=== PATIENT | male | born 1990 | race Caucasian/White ===

== ENCOUNTER 2021-05-08 14:58 | Outpatient (CLI) | payer OTHER ==
[~2021-05-08] VITALS: Ht 185.4 cm; Wt 94.3 kg
[2021-05-08] MEDS ORDERED: albuterol 2.5 MG/3 ML nebule NEB ONE (15:40)
== END 2021-05-08 23:59 | disposition home or self-care (01) ==
LOC: RT 14:58
DX: R94.2 Abnormal results of pulmonary function studies (principal)
CPT/HCPCS: 94060; 94760